=== PATIENT | female | born 1980 | race Caucasian/White ===

== ENCOUNTER 2017-06-05 15:26 | Emergency (ER) | payer BC ==
[2017-06-05 15:38] VITALS: BP 135/82; PULSE 63; RESP 18; TEMP 97.4; O2SAT 99
[2017-06-05 16:17] LABS: HCG,QUALITATIVE URINE NEGATIVE (NEGATIVE)
[2017-06-05 16:28] LABS: SQUAMOUS EPITHIAL 1 /hpf (0-5); URINE BACTERIA MOD (<OCC); URINE BILIRUBIN NEGATIVE (NEGATIVE); URINE BLOOD 2+ (NEGATIVE); URINE CLARITY Hazy (Clear); URINE COLOR Yellow (YELLOW); URINE GLUCOSE (UA) NORMAL (Normal); URINE LEUKOCYTE ESTERASE NEG Leu/uL (Negative); URINE NITRATE POSITIVE (NEGATIVE); URINE PROTEIN 2+ mg/dL (NEGATIVE); URINE UROBILINOGEN NORMAL mg/dL (0.2-1.0)
--- NOTE | 2017-06-05 17:00 | C.PDOC ---
History Of Present Illness 37 yr old female presents to the ER with complaints of burning with urination, associated with superpubic abdominal pain for the past 2-3 days. Patient also reports of foul smelling urine. Denies fever, nausea, vomiting, hematuria, back pain, weakness or numbness. Time Seen by Provider: 06/05/17 16:20 Chief Complaint (Nursing): Female Genitourinary History Per: Patient History/Exam Limitations: no limitations Onset/Duration Of Symptoms: Days (2-3 days) Past Medical History Reviewed: Historical Data, Nursing Documentation, Vital Signs Vital Signs: Last Vital Signs Temp 97.4 F L 06/05/17 15:36 Pulse 63 06/05/17 15:36 Resp 18 06/05/17 15:36 BP 135/82 06/05/17 15:36 Pulse Ox 99 06/05/17 17:17 - Medical History PMH: Anxiety, Hepatitis (C), Post Traumatic Stress Disorder, Schizophrenia Surgical History: Cholecystectomy - [facility] Procedures LAPAROSCOPIC CHOLECYSTECTOMY (10/04/14) Family History: States: No Known Family Hx - Social History Hx Tobacco Use: Yes Hx Alcohol Use: No Hx Substance Use: No (FORMER) - Immunization History Hx Tetanus Toxoid Vaccination: No Hx Influenza Vaccination: Yes (2016) Hx Pneumococcal Vaccination: No Review Of Systems Except As Marked, All Systems Reviewed And Found Negative. Constitutional: Negative for: Fever Gastrointestinal: Positive for: Abdominal Pain (Superpubic ). Negative for: Nausea, Vomiting Genitourinary: Positive for: Dysuria. Negative for: Hematuria Musculoskeletal: Negative for: Back Pain Neurological: Negative for: Weakness, Numbness Physical Exam - Physical Exam Appears: Non-toxic, No Acute Distress Skin: Warm, Dry Head: Atraumatic, Normacephalic Chest: Symmetrical, No Tenderness Cardiovascular: Rhythm Regular, No Murmur Respiratory: No Rales, No Rhonchi, No Stridor, No Wheezing Gastrointestinal/Abdominal: Normal Exam, Soft, No Tenderness, No Guarding, No Rebound Extremity: Normal ROM, No Swelling Neurological/Psych: Oriented x3, Normal Speech, Normal Motor ED Course And Treatment O2 Sat by Pulse Oximetry: 99 (RA ) Pulse Ox Interpretation: Normal Medical Decision Making Medical Decision Making: PLAN: * Urinalysi s * HCG * Ciprofloxacin PO * Pyriduym PO Disposition - Disposition Referrals: [facility] [Outside] Disposition: HOME/ ROUTINE Disposition Time: 16:57 Condition: GOOD Additional Instructions: Followup with the medical doctor within 1-2 days. Return if worsened. Prescriptions: Ciprofloxacin [Cipro] 1 tab PO BID #14 tab Phenazopyridine HCl [Pyridium] 200 mg PO TID #7 tablet Instructions: Urinary Tract Infection in Women (ED) Forms: [employer] Connect (Stateless) - Clinical Impression Clinical Impression: UTI (urinary tract infection) - PA / LEAD ENTERPRISE ARCHITECT / Resident Statement MD/DO has reviewed & agrees with the documentation as recorded. - Scribe Statement The provider has reviewed the documentation as recorded by the Scribe Chantelle Rosario All medical record entries made by the Joshua were at my direction and personally dictated by me. I have reviewed the chart and agree that the record accurately reflects my personal performance of the history, physical exam, medical decision making, and the department course for this patient. I have also personally directed, reviewed, and agree with the discharge instructions and disposition.
== END 2017-06-05 17:07 | disposition home or self-care (01) ==
LOC: C.ER 15:26
DX: N39.0 Urinary tract infection, site not specified (principal)

== ENCOUNTER 2017-08-19 19:52 | Emergency (ER) | payer BC ==
[2017-08-19 20:07] VITALS: TEMP 97.9
[2017-08-19] MEDS ORDERED: Sodium Chloride 0.9% 1,000 ML IV ONE (20:27)
[2017-08-19] MEDS ORDERED: Sodium Chloride 0.9% 1,000 ML ONE (20:45)
[2017-08-19 20:48] LABS: BASO # 0.1 K/uL (0.0-0.2); BASO % 0.6 % (0.0-2.0); EOS # 0.1 K/uL (0.0-0.7); EOS % 0.5 % (0.0-4.0); HEMATOCRIT 36.2 % (34.0-47.0); LYMPH # 4.2 K/uL (1.0-4.3); LYMPH % 42.7 % (20.0-40.0); MEAN CELL VOLUME 90.5 fL (81.0-99.0); MEAN CORPUSCULAR HGB CONC 34.2 g/dL (33.0-37.0); MEAN PLATELET VOLUME 8.9 fL (7.2-11.7); MONO # 0.5 K/uL (0.0-0.8); RED CELL DISTRIBUTION WIDTH 13.9 % (11.5-14.5); WHITE BLOOD COUNT 9.9 K/uL (4.8-10.8)
--- NOTE | 2017-08-19 20:48 | C.PDOC ---
History Of Present Illness 37 y/o female c/o lower back pain for a week. Patient saw her PMD recently who switch her from Motrin to Naproxen with no relief in pain. She denies any associated bladder symptoms and has no saddle anesthesia. She has no numbness or tingling in her legs. Patient notes this morning she began to vomit and have watery diarrhea associated with abdominal cramping. Denies fever or chills. No sick contact or recent travels. Patient is able to tolerate water, but has decrease PO intake. Time Seen by Provider: 08/19/17 20:21 Chief Complaint (Nursing): Abdominal Pain History Per: Patient History/Exam Limitations: no limitations Onset/Duration Of Symptoms: Days (1 week) Current Symptoms Are (Timing): Still Present Severity: Mild Quality Of Discomfort: Aching, Cramping Associated Symptoms: Vomiting, Diarrhea, Back Pain (lower). denies: Fever, Chills Alleviating Factors: None Recent travel outside of the [place]: No Additional History Per: Patient Past Medical History Reviewed: Historical Data, Nursing Documentation, Vital Signs Vital Signs: Last Vital Signs Temp 97.9 F 08/19/17 20:03 Pulse 92 H 08/19/17 20:03 Resp 20 08/19/17 20:03 BP 123/75 08/19/17 20:03 Pulse Ox 96 08/19/17 20:50 - Medical History PMH: Anxiety, Hepatitis (C), Post Traumatic Stress Disorder, Schizophrenia Denies: Chronic Kidney Disease Surgical History: Cholecystectomy - [facility] Procedures LAPAROSCOPIC CHOLECYSTECTOMY (10/04/14) Family History: States: Unknown Family Hx - Social History Hx Tobacco Use: Yes Hx Alcohol Use: No Hx Substance Use: No - Immunization History Hx Tetanus Toxoid Vaccination: No Hx Influenza Vaccination: Yes (2016) Hx Pneumococcal Vaccination: No Review Of Systems Except As Marked, All Systems Reviewed And Found Negative. Constitutional: Positive for: Other (Decrease PO intake). Negative for: Fever, Chills Gastrointestinal: Positive for: Vomiting, Abdominal Pain, Diarrhea Musculoskeletal: Positive for: Back Pain (lower) Physical Exam - Physical Exam Appears: Non-toxic, No Acute Distress Skin: Warm, Dry Head: Atraumatic, Normacephalic Cardiovascular: Rhythm Regular, No Murmur Respiratory: Normal Breath Sounds, No Rales, No Rhonchi, No Wheezing Gastrointestinal/Abdominal: Bowel Sounds (Normal), Soft, No Tenderness Back: No Vertebral Tenderness, Paraspinal Tenderness (Mild muscular tenderness to the lower back) Extremity: Normal ROM (x4) Neurological/Psych: Oriented x3, Normal Speech, Normal Motor, Normal Sensation, Other (No focal deficit) Gait: Steady ED Course And Treatment - Laboratory Results Result Diagrams: 08/19/17 20:43 08/19/17 20:43 Lab Interpretation: No Acute Changes O2 Sat by Pulse Oximetry: 96 (RA) Pulse Ox Interpretation: Normal Reevaluation Time: 21:37 Reassessment Condition: Improved (after treatment with Pepcid, Protonix, Flexeril and IV fluids.) Medical Decision Making Medical Decision Making: Plans: * Blood labs * Flexeril * Toradol * Zofran * IV fluids UA Disposition Counseled Patient/Family Regarding: Studies Performed, Diagnosis, Need For Followup, Rx Given - Disposition Referrals: [facility] [Outside] Disposition: HOME/ ROUTINE Disposition Time: 21:38 Condition: IMPROVED Prescriptions: Cyclobenzaprine [Cyclobenzaprine HCl] 10 mg PO BID PRN #20 tab PRN Reason: Pain, Moderate (4-7) Ondansetron ODT [Zofran ODT] 1 odt PO BID PRN #6 odt PRN Reason: Nausea/Vomiting Instructions: Gastroenteritis (ED), Back Pain (ED) Forms: [facility] (Bulgarian) - Clinical Impression Clinical Impression: Vomiting, Diarrhea, Back pain - Scribe Statement The provider has reviewed the documentation as recorded by the Scribvalente wilkinson All medical record entries made by the Heleneibvalente were at my direction and personally dictated by me. I have reviewed the chart and agree that the record accurately reflects my personal performance of the history, physical exam, medical decision making, and the department course for this patient. I have also personally directed, reviewed, and agree with the discharge instructions and disposition.
[2017-08-19 20:51] LABS: RBC URINE < 1 /hpf (0-3); URINE BILIRUBIN NEGATIVE (NEGATIVE); URINE BLOOD NEGATIVE (NEGATIVE); URINE COLOR Straw (YELLOW); URINE GLUCOSE (UA) NORMAL (Normal); URINE KETONE NEGATIVE (NEGATIVE); URINE LEUKOCYTE ESTERASE NEG Leu/uL (Negative); URINE PROTEIN NEGATIVE (NEGATIVE); URINE UROBILINOGEN NORMAL mg/dL (0.2-1.0); WBC URINE < 1 /hpf (0-5)
[2017-08-19 20:56] LABS: CHLORIDE 101 mmol/L (98-107); POTASSIUM 3.9 mmol/L (3.6-5.2); SODIUM 134 mmol/L (132-148)
[2017-08-19 20:58] LABS: BILIRUBIN,TOTAL 0.5 mg/dL (0.2-1.3); CARBON DIOXIDE 23 mmol/L (22-30); GFR AFRICAN-AMERICAN > 60
[2017-08-19 20:59] LABS: ALB/GLOB RATIO 1.1 (1.0-2.1); ALKALINE PHOSPHATASE 118 U/L (38-126); ALT/SGPT 63 U/L (9-52); AST/SGOT 38 U/L (14-36); BLOOD UREA NITROGEN 17 mg/dL (7-17); GLUCOSE,RANDOM 87 mg/dL (65-105); TOTAL PROTEIN 7.3 g/dL (6.3-8.3)
[2017-08-19 21:48] VITALS: BP 125/75; PULSE 78; RESP 16; O2SAT 98
== END 2017-08-19 21:47 | disposition home or self-care (01) ==
LOC: C.ER 19:52
DX: R11.10 Vomiting, unspecified (principal); R19.7 Diarrhea, unspecified; M54.5 Low back pain
CPT/HCPCS: 80053; 81001; 83690; 85025; 96361; 96374; 96375; 99283; J1885; J2405; J7040

== ENCOUNTER 2017-11-18 12:40 | Emergency (ER) | payer BC ==
[2017-11-18 12:56] VITALS: RESP 18; O2SAT 99
[2017-11-18 14:29] LABS: HCG,QUALITATIVE URINE NEGATIVE (NEGATIVE)
[2017-11-18 14:33] LABS: SQUAMOUS EPITHIAL 1 /hpf (0-5); URINE BACTERIA RARE (<OCC); URINE BILIRUBIN NEGATIVE (NEGATIVE); URINE BLOOD 3+ (NEGATIVE); URINE CLARITY Clear (Clear); URINE COLOR Yellow (YELLOW); URINE GLUCOSE (UA) NORMAL (Normal); URINE HYALINE CAST 0-2 /lpf (0-2); URINE LEUKOCYTE ESTERASE NEG Leu/uL (Negative); URINE NITRATE NEGATIVE (NEGATIVE); URINE PROTEIN 1+ mg/dL (NEGATIVE); URINE UROBILINOGEN NORMAL mg/dL (0.2-1.0)
--- NOTE | 2017-11-18 14:46 | C.PDOC ---
History Of Present Illness Pt c/o menstrual cramps. Time Seen by Provider: 11/18/17 13:03 Chief Complaint (Nursing): Abdominal Pain History Per: Patient Onset/Duration Of Symptoms: Days (5), Intermittent Episodes Current Symptoms Are (Timing): Still Present Severity: Moderate Location Of Pain/Discomfort: Suprapubic Quality Of Discomfort: Cramping Additional History Per: Prior Records Past Medical History Reviewed: Historical Data, Nursing Documentation, Vital Signs Vital Signs: Last Vital Signs Temp 97.6 F 11/18/17 12:52 Pulse 108 H 11/18/17 12:52 Resp 18 11/18/17 12:52 BP 112/77 11/18/17 12:52 Pulse Ox 99 11/18/17 14:55 - Medical History PMH: Anxiety, Hepatitis (C), Post Traumatic Stress Disorder, Schizophrenia Surgical History: Cholecystectomy - [facility] Procedures LAPAROSCOPIC CHOLECYSTECTOMY (10/04/14) Family History: States: Unknown Family Hx - Social History Hx Tobacco Use: Yes Hx Alcohol Use: No Hx Substance Use: No - Immunization History Hx Tetanus Toxoid Vaccination: No Hx Influenza Vaccination: Yes (2015) Hx Pneumococcal Vaccination: No Review Of Systems Except As Marked, All Systems Reviewed And Found Negative. Constitutional: Negative for: Fever, Weakness Cardiovascular: Negative for: Chest Pain, Light Headedness Respiratory: Negative for: Shortness of Breath Genitourinary: Positive for: Vaginal Bleeding. Negative for: Dysuria Musculoskeletal: Negative for: Neck Pain Skin: Negative for: Rash Neurological: Negative for: Weakness, Numbness Physical Exam - Physical Exam Appears: Non-toxic, No Acute Distress Skin: Normal Color, Warm, Dry, No Rash Head: Atraumatic, Normacephalic Eye(s): bilateral: Normal Inspection, PERRL, EOMI Neck: Normal ROM, Supple Cardiovascular: Rhythm Regular Respiratory: Normal Breath Sounds, No Accessory Muscle Use Gastrointestinal/Abdominal: Soft, Tenderness (mild suprapubic), No Guarding, No Rebound Back: No CVA Tenderness Extremity: Normal ROM Neurological/Psych: Oriented x3, Normal Motor, Normal Sensation ED Course And Treatment - Laboratory Results Urine POC: Negative O2 Sat by Pulse Oximetry: 99 Pulse Ox Interpretation: Normal Disposition Counseled Patient/Family Regarding: Studies Performed, Diagnosis, Need For Followup, Rx Given - Disposition Referrals: Jose Pereira MD [Staff Provider] - Disposition: HOME/ ROUTINE Disposition Time: 14:56 Condition: STABLE Additional Instructions: Follow up with your Electronics Warfare Technician for further evaluation and treatment. Return to the ER if you develop fever, vomiting, dizziness, worsening of symptoms or if you have any other concerns. Prescriptions: Cyclobenzaprine [Cyclobenzaprine HCl] 10 mg PO TID PRN #15 tab PRN Reason: Muscle Spasm Naproxen [Naprosyn] 1 tab PO BID PRN #20 tab PRN Reason: Pain Instructions: Dysmenorrhea (ED) Forms: [facility] (Palauan) - Clinical Impression Clinical Impression: Dysmenorrhea
[2017-11-18 15:10] VITALS: BP 116/76; PULSE 97; TEMP 97.5
== END 2017-11-18 15:10 | disposition home or self-care (01) ==
LOC: C.ER 12:40
DX: N94.6 Dysmenorrhea, unspecified (principal)

== ENCOUNTER 2018-01-19 17:11 | Emergency (ER) | payer BC ==
[2018-01-19 17:32] VITALS: BP 131/93; PULSE 85; RESP 18; TEMP 98; O2SAT 93
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
--- NOTE | 2018-01-20 23:32 | CARD ---
APPROVED REPORT EKG Measurement Heart [id number] <Conclusion> Normal sinus rhythm Normal ECG
== END 2018-01-19 18:12 | disposition left against medical advice (07) ==
LOC: C.ER 17:11
DX: Z76.5 Malingerer [conscious simulation] (principal); R46.1 Bizarre personal appearance

== ENCOUNTER 2018-06-06 15:09 | Emergency (ER) | payer BC ==
[2018-06-06] MEDS ORDERED: Sodium Chloride 0.9% 1,000 ML IV ONE (15:28)
--- NOTE | 2018-06-06 16:00 | C.PDOC ---
History Of Present Illness 38 year old female presents to the emergency department after her called an ambulance when she overdosed on heroin. As per EMS, Narcan was used to revive her. Patient reports that she snorts heroin, but administered it via IV today. She reports using heroin for the last ten years. She denies other medical problems, or suicidal ideation. Time Seen by Provider: 06/06/18 15:22 Chief Complaint (Nursing): Substance Abuse History Per: Patient, EMS, Family History/Exam Limitations: no limitations Onset/Duration Of Symptoms: Hrs Current Symptoms Are (Timing): Still Present Suicide/Self Injury Attempted (Context): None Modifying Factor(s): Other (heroin) Associated Symptoms: denies: Suicidal Thoughts, Suicidal Plan Past Medical History Reviewed: Historical Data, Nursing Documentation, Vital Signs Vital Signs: Last Vital Signs Temp 98.5 F 06/06/18 18:04 Pulse 87 06/06/18 19:27 Resp 14 06/06/18 19:27 BP 113/69 06/06/18 19:27 Pulse Ox 96 06/06/18 19:27 - Medical History PMH: Anxiety, Bipolar Disorder, Hepatitis (C), Post Traumatic Stress Disorder, Schizophrenia Denies: Chronic Kidney Disease Surgical History: Cholecystectomy - [facility] Procedures LAPAROSCOPIC CHOLECYSTECTOMY (10/04/14) Family History: States: No Known Family Hx - Social History Hx Tobacco Use: Yes Hx Alcohol Use: No Hx Substance Use: No - Immunization History Hx Tetanus Toxoid Vaccination: No Hx Influenza Vaccination: Yes (sep 2017) Hx Pneumococcal Vaccination: No Review Of Systems Psych: Negative for: Suicidal ideation Physical Exam - Physical Exam Appears: Non-toxic, No Acute Distress, Other (obese) Skin: Warm, Dry Head: Atraumatic, Normacephalic Eye(s): bilateral: Normal Inspection Nose: Normal Oral Mucosa: Moist Neck: Normal, Supple Chest: Symmetrical, No Tenderness Cardiovascular: Rhythm Regular (tachycardic), No Murmur Respiratory: Normal Breath Sounds, No Rales, No Rhonchi, No Wheezing Gastrointestinal/Abdominal: Normal Exam, Soft, No Tenderness, No Guarding, No Rebound Extremity: Normal ROM, Other (IO present in left lower leg) Neurological/Psych: Oriented x3, Normal Speech, Normal Cognition ED Course And Treatment - Laboratory Results Result Diagrams: 06/06/18 16:22 08/05/18 16:22 Lab Interpretation: No Acute Changes ECG: Interpreted By Me ECG Rhythm: Sinus Rhythm ECG Interpretation: No Acute Changes Progress Note: Plan: EKG. Alcohol Serum. CMP. Drug Screen. CBC. NaCl IV Fluids. HCG Qualitative Urine. Urinalysis Reevaluation Time: 20:34 Reassessment Condition: Improved (Patient remians awake and alert and in no distress.) Disposition Counseled Patient/Family Regarding: Studies Performed, Diagnosis, Need For Followup - Disposition Referrals: [facility] [Outside] Disposition: HOME/ ROUTINE Disposition Time: 20:37 Condition: IMPROVED Instructions: Narcotic Overdose Forms: [employer] (Cape Verdean) - Clinical Impression Clinical Impression: Opiate overdose - Scribe Statement The provider has reviewed the documentation as recorded by the Scribe (Ren Brown) Provider Attestation: All medical record entries made by the Scribe were at my direction and personally dictated by me. I have reviewed the chart and agree that the record accurately reflects my personal performance of the history, physical exam, medical decision making, and the department course for this patient. I have also personally directed, reviewed, and agree with the discharge instructions and disposition.
[2018-06-06 16:24] LABS: BASO % 0.1 % (0.0-2.0); HEMOGLOBIN 12.2 g/dL (11.0-16.0); LYMPH # 0.7 K/uL (1.0-4.3); LYMPH % 4.7 % (20.0-40.0); MEAN CORPUSCULAR HEMOGLOBIN 29.1 pg (27.0-31.0); MEAN CORPUSCULAR HGB CONC 32.8 g/dL (33.0-37.0); MEAN PLATELET VOLUME 8.6 fL (7.2-11.7); MONO # 0.7 K/uL (0.0-0.8); MONO % 4.7 % (0.0-10.0); NEUT # 14.1 K/uL (1.8-7.0); NEUT % 90.5 % (50.0-75.0); NRBC % 0.1 % (0.0-2.0); PLATELET COUNT 223 K/uL (130-400); RBC 4.21 Mil/uL (3.80-5.20); RED CELL DISTRIBUTION WIDTH 14.3 % (11.5-14.5); WHITE BLOOD COUNT 15.6 K/uL (4.8-10.8)
[2018-06-06 16:28] LABS: MEAN CELL VOLUME 88.5 fL (81.0-99.0)
[2018-06-06 16:37] LABS: ALB/GLOB RATIO 1.3 (1.0-2.1); ALBUMIN 4.2 g/dL (3.5-5.0); ALT/SGPT 30 U/L (9-52); AST/SGOT 27 U/L (14-36); BLOOD UREA NITROGEN 17 mg/dL (7-17); CALCIUM 8.9 mg/dl (8.6-10.4); GFR AFRICAN-AMERICAN 44; GFR NON-AFRICAN AMERICAN 36
[2018-06-06 16:57] LABS: BANDS 8 % (0-2); LYMPHOCYTE 6 % (20-40); MONOCYTE 4 % (0-10); NEUTROPHIL 82 % (50-75); PLATELET ESTIMATE NORMAL (NORMAL); TOTAL CELLS COUNTED 100
[2018-06-06 16:58] LABS: ANISOCYTOSIS SLIGHT; HYPOCHROMIC SLIGHT; LARGE PLATELETS PRESENT; OVALOCYTES SLIGHT; POIKILOCYTOSIS SLIGHT
[2018-06-06 21:01] LABS: HCG,QUALITATIVE URINE NEGATIVE (NEGATIVE)
[2018-06-06 21:09] LABS: SQUAMOUS EPITHIAL 2 /hpf (0-5); URINE BILIRUBIN NEGATIVE (NEGATIVE); URINE BLOOD 2+ (NEGATIVE); URINE CLARITY Hazy (Clear); URINE COLOR Yellow (YELLOW); URINE GLUCOSE (UA) NORMAL (Normal); URINE LEUKOCYTE ESTERASE NEG Leu/uL (Negative); URINE PROTEIN NEGATIVE (NEGATIVE); URINE UROBILINOGEN NORMAL mg/dL (0.2-1.0)
[2018-06-06 21:10] VITALS: BP 109/72; PULSE 88; RESP 18; TEMP 98.2; O2SAT 94
[2018-06-06 21:25] LABS: BARBITURATES, UR NEGATIVE (NEGATIVE); BENZODIAZEPINES, UR NEGATIVE (NEGATIVE); PHENCYCLIDINE, UR NEGATIVE (NEGATIVE)
[2018-06-06 21:45] LABS: OPIATES, UR POSITIVE (NEGATIVE)
--- NOTE | 2018-06-07 23:59 | CARD ---
APPROVED REPORT Date of service: 06/06/2018 EKG Measurement Heart [id number] <Conclusion> Normal sinus rhythm Possible Left atrial enlargement Borderline ECG
== END 2018-06-06 21:05 | disposition home or self-care (01) ==
LOC: C.ER 15:09
DX: T40.1X1A Poisoning by heroin, accidental (unintentional), initial encounter (principal); Y92.89 Other specified places as the place of occurrence of the external cause; F31.9 Bipolar disorder, unspecified; F43.10 Post-traumatic stress disorder, unspecified; F20.9 Schizophrenia, unspecified
CPT/HCPCS: 80053; 81001; 84703; 85025; 93005; 96360; 99285; G0480; J7030

== ENCOUNTER 2018-07-07 19:10 | Emergency (ER) | payer BC ==
[2018-07-07] MEDS ORDERED: Sodium Chloride 0.9% 1,000 ML IV ONE (20:09)
--- NOTE | 2018-07-07 20:33 | C.PDOC ---
History Of Present Illness 38 y/o female presents to the ER complaining of vomiting x 3 days and diarrhea which began in the morning today. Patient states that she has aching muscles, and feels warm. Patient denies having fever and abdominal pain. Time Seen by Provider: 07/07/18 20:05 Chief Complaint (Nursing): Abdominal Pain History Per: Patient History/Exam Limitations: no limitations Onset/Duration Of Symptoms: Days Current Symptoms Are (Timing): Still Present Severity: Moderate Past Medical History Reviewed: Historical Data, Nursing Documentation, Vital Signs Vital Signs: Last Vital Signs Temp 98.2 F 07/07/18 19:48 Pulse 79 07/07/18 19:48 Resp 22 07/07/18 19:48 BP 145/82 07/07/18 19:48 Pulse Ox 95 07/07/18 20:35 - Medical History PMH: Anxiety, Bipolar Disorder, Hepatitis (C), Post Traumatic Stress Disorder, Schizophrenia Surgical History: Cholecystectomy - [facility] Procedures LAPAROSCOPIC CHOLECYSTECTOMY (10/04/14) Family History: States: No Known Family Hx - Social History Hx Tobacco Use: Yes Hx Alcohol Use: No Hx Substance Use: No - Immunization History Hx Tetanus Toxoid Vaccination: No Hx Influenza Vaccination: Yes (sep 2017) Hx Pneumococcal Vaccination: No Review Of Systems Except As Marked, All Systems Reviewed And Found Negative. Constitutional: Negative for: Fever, Chills Gastrointestinal: Positive for: Vomiting, Diarrhea. Negative for: Nausea, Abdominal Pain Genitourinary: Negative for: Dysuria, Hematuria Physical Exam - Physical Exam Appears: Non-toxic, No Acute Distress Skin: Normal Color, Warm, Dry Head: Atraumatic, Normacephalic Eye(s): bilateral: Normal Inspection, EOMI Nose: Normal Oral Mucosa: Moist Throat: Normal, No Erythema, No Exudate Neck: Supple Chest: Symmetrical Cardiovascular: Rhythm Regular Respiratory: Normal Breath Sounds, No Rales, No Rhonchi, No Wheezing Gastrointestinal/Abdominal: Bowel Sounds, Soft, No Tenderness, No Distention, No Guarding Extremity: Bilateral: Atraumatic, Normal ROM Neurological/Psych: Oriented x3, Normal Speech ED Course And Treatment - Laboratory Results Result Diagrams: 07/07/18 20:30 07/07/18 20:30 Lab Interpretation: No Acute Changes O2 Sat by Pulse Oximetry: 95 (RA) Pulse Ox Interpretation: Normal Medical Decision Making Medical Decision Making: Impression: Vomiting, Diarrhea Plan: * Labs * UA * Pepcid IV * Toradol IV * Zofran IV * IV Fluids Labs reviewed and unremarkable. Urine negative for UTI. On re-eval, the patient is resting comfortably without fever and stable vital signs, abdomen remains soft. Patient is tolerating PO. Patient feels comfortable going home. Patient will be discharged home. Disposition Counseled Patient/Family Regarding: Diagnosis, Need For Followup - Disposition Referrals: [facility] [Outside] [facility] [Outside] Disposition: HOME/ ROUTINE Disposition Time: 21:26 Condition: STABLE Additional Instructions: Drink fluids to prevent dehydration. Try low-fat diet with increase in fluids such as sport drink, gelatin. Try soup, rice, bread, crackers, cereal, bananas to help with diarrhea. Avoid high sugar foods or drinks (soda and juice) , fatty foods Instructions: Gastroenteritis (DC) - POA Present On Arrival: None - Clinical Impression Clinical Impression: Gastroenteritis - PA / PRESALES CONSULTANT / Resident Statement MD/DO has reviewed & agrees with the documentation as recorded. - Scribe Statement The provider has reviewed the documentation as recorded by the Heleneibe Ford El Provider Attestation All medical record entries made by the Heleneibe were at my direction and personally dictated by me. I have reviewed the chart and agree that the record accurately reflects my personal performance of the history, physical exam, medical decision making, and the department course for this patient. I have also personally directed, reviewed, and agree with the discharge instructions and disposition.
[2018-07-07] MEDS ORDERED: Sodium Chloride 0.9% 1,000 ML ONE (20:40)
[2018-07-07 20:45] LABS: BASO % 0.3 % (0.0-2.0); EOS % 0.2 % (0.0-4.0); HEMOGLOBIN 13.2 g/dL (11.0-16.0); LYMPH # 2.6 K/uL (1.0-4.3); MEAN CELL VOLUME 86.8 fL (81.0-99.0); MEAN CORPUSCULAR HEMOGLOBIN 29.4 pg (27.0-31.0); MEAN CORPUSCULAR HGB CONC 33.9 g/dL (33.0-37.0); MEAN PLATELET VOLUME 10.4 fL (7.2-11.7); MONO # 0.4 K/uL (0.0-0.8); NEUT # 7.4 K/uL (1.8-7.0); NEUT % 70.5 % (50.0-75.0); RBC 4.49 Mil/uL (3.80-5.20); RED CELL DISTRIBUTION WIDTH 14.2 % (11.5-14.5); WHITE BLOOD COUNT 10.5 K/uL (4.8-10.8)
[2018-07-07 20:50] LABS: SQUAMOUS EPITHIAL 5 /hpf (0-5); URINE BACTERIA RARE (<OCC); URINE BILIRUBIN NEGATIVE (NEGATIVE); URINE BLOOD NEGATIVE (NEGATIVE); URINE CLARITY Hazy (Clear); URINE GLUCOSE (UA) NORMAL (Normal); URINE LEUKOCYTE ESTERASE TRACE Leu/uL (Negative); URINE PROTEIN 1+ mg/dL (NEGATIVE)
[2018-07-07 20:53] LABS: URINE COLOR YELLOW (YELLOW)
[2018-07-07 21:19] LABS: ALB/GLOB RATIO 1.2 (1.0-2.1); ALBUMIN 4.2 g/dL (3.5-5.0); ALT/SGPT 20 U/L (9-52); AST/SGOT 24 U/L (14-36); BLOOD UREA NITROGEN 9 mg/dL (7-17); CALCIUM 9.4 mg/dl (8.6-10.4); GFR NON-AFRICAN AMERICAN > 60
[2018-07-07 21:50] VITALS: BP 118/78; PULSE 64; RESP 18; TEMP 98.9
[2018-07-07 21:57] VITALS: O2SAT 95
== END 2018-07-07 21:50 | disposition home or self-care (01) ==
LOC: C.ER 19:10
DX: K52.9 Noninfective gastroenteritis and colitis, unspecified (principal)
CPT/HCPCS: 80053; 81001; 84703; 85025; 96361; 96374; 96375; 99284; J1885; J2405; J7030

== ENCOUNTER 2018-11-01 16:46 | Emergency (ER) | payer BC ==
[2018-11-01 17:00] VITALS: O2SAT 95
[2018-11-01 18:19] LABS: BASO % 0.5 % (0.0-2.0); EOS # 0.2 K/uL (0.0-0.7); EOS % 2.5 % (0.0-4.0); HEMOGLOBIN 11.5 g/dL (11.0-16.0); LYMPH # 2.6 K/uL (1.0-4.3); LYMPH % 28.2 % (20.0-40.0); MEAN CELL VOLUME 87.3 fL (81.0-99.0); MEAN CORPUSCULAR HEMOGLOBIN 28.3 pg (27.0-31.0); MEAN CORPUSCULAR HGB CONC 32.4 g/dL (33.0-37.0); MEAN PLATELET VOLUME 10.4 fL (7.2-11.7); MONO # 0.4 K/uL (0.0-0.8); MONO % 4.1 % (0.0-10.0); NEUT # 5.9 K/uL (1.8-7.0); NEUT % 64.7 % (50.0-75.0); RBC 4.07 Mil/uL (3.80-5.20); RED CELL DISTRIBUTION WIDTH 14.7 % (11.5-14.5); WHITE BLOOD COUNT 9.2 K/uL (4.8-10.8)
[2018-11-01] MEDS ORDERED: Iodixanol 320 MG/ML 100 ML BOTTLE IV ONE (18:32)
[2018-11-01 18:35] LABS: ALB/GLOB RATIO 1.3 (1.0-2.1); ALBUMIN 4.2 g/dL (3.5-5.0); ALT/SGPT 33 U/L (9-52); AST/SGOT 31 U/L (14-36); BLOOD UREA NITROGEN 13 mg/dL (7-17); CALCIUM 8.3 mg/dl (8.6-10.4); GFR NON-AFRICAN AMERICAN > 60
--- NOTE | 2018-11-01 19:21 | C.PDOC ---
History Of Present Illness 38 y/o female presents to the ER complaining of pimple on right cheek which has been present for the past several days. Patient states that she picked at the pimple several days ago. Patient reports that she now has swelling and redness to the cheek extending to lower portion of right eyelid. She notes that her left eye was swollen and closed when she woke up in the morning today.Denies having fever and chills. Time Seen by Provider: 11/01/18 17:47 Chief Complaint (Nursing): Abnormal Skin Integrity History Per: Patient History/Exam Limitations: no limitations Onset/Duration Of Symptoms: Days Current Symptoms Are (Timing): Still Present Severity: Moderate Past Medical History Reviewed: Historical Data, Nursing Documentation, Vital Signs Vital Signs: Last Vital Signs Temp 98.7 F 11/01/18 16:55 Pulse 64 11/01/18 16:55 Resp 18 11/01/18 16:55 BP 154/94 H 11/01/18 16:55 Pulse Ox 95 11/01/18 16:55 - Medical History PMH: Anxiety, Bipolar Disorder, Hepatitis (C), Post Traumatic Stress Disorder, Schizophrenia Denies: Chronic Kidney Disease Surgical History: Cholecystectomy - [facility] Procedures LAPAROSCOPIC CHOLECYSTECTOMY (10/04/14) Family History: States: No Known Family Hx - Social History Hx Tobacco Use: Yes Hx Alcohol Use: No Hx Substance Use: No - Immunization History Hx Tetanus Toxoid Vaccination: No Hx Influenza Vaccination: Yes (sep 2017) Hx Pneumococcal Vaccination: No Review Of Systems Constitutional: Negative for: Fever, Chills Skin: Positive for: Other (pimple to right cheek) Physical Exam - Physical Exam Appears: Non-toxic, No Acute Distress Skin: Normal Color, Warm, Dry Head: Normacephalic, Swelling (firm erythematous swollen indurated right zygomatic arch), Other (pustule with small scab over it to right zygomatic arch, no fluctuance) Eye(s): bilateral: Normal Inspection, PERRL, EOMI Nose: Normal Oral Mucosa: Moist Neck: Supple Chest: Symmetrical Cardiovascular: Rhythm Regular Respiratory: Normal Breath Sounds, No Rales, No Rhonchi, No Wheezing Neurological/Psych: Oriented x3, Normal Speech ED Course And Treatment - Laboratory Results Result Diagrams: 11/01/18 18:14 11/01/18 18:14 Lab Interpretation: No Acute Changes O2 Sat by Pulse Oximetry: 95 (RA) Pulse Ox Interpretation: Normal - CT Scan/US CT facial bones Other Rad Studies (CT/US): Read By Radiologist, Radiology Report Reviewed CT/US Interpretation: Findings: The visualized paranasal sinuses demonstrate diffuse mucosal thickening. Air fluid levels are seen in the maxillary sinuses bilaterally. The osteomeatal complexes are patent bilaterally. The nasal septum is midline. The visualized mastoid air cells are clear. The osseous structures do not demonstrate any acute abnormalities. The superficial soft tissues in the right maxillary region demonstrate significant inflammatory stranding and swelling. No focal mass or fluid collection is identified however. Impression: 1. Inflammation and swelling in the right maxillary superficial soft tissues are consistent with cellulitis. No focal mass or abscess is identified. 2. Pansinusitis. Reevaluation Time: 21:23 Reassessment Condition: Unchanged Medical Decision Making Medical Decision Making: Plan: --Labs --CT- Orbits w/Facial Disposition Counseled Patient/Family Regarding: Studies Performed, Diagnosis, Need For Followup, Rx Given - Disposition Referrals: Scott Pereira MD [Staff Provider] - Disposition: HOME/ ROUTINE Disposition Time: 21:23 Condition: STABLE Prescriptions: Doxycycline Monohydrate 100 mg PO BID #20 capsule Naproxen [Naprosyn] 1 tab PO BID PRN #25 tab PRN Reason: Pain Instructions: Cellulitis (Skin Infection), Adult (DC) Forms: [facility] (Gabonese) - Clinical Impression Clinical Impression: Facial cellulitis - Scribe Statement The provider has reviewed the documentation as recorded by the Joshua El Provider Attestation: All medical record entries made by the Joshua were at my direction and personally dictated by me. I have reviewed the chart and agree that the record accurately reflects my personal performance of the history, physical exam, medical decision making, and the department course for this patient. I have also personally directed, reviewed, and agree with the discharge instructions and disposition.
[2018-11-01 21:19] VITALS: BP 127/78; PULSE 56; RESP 13; TEMP 98.3
[2018-11-01] MEDS ORDERED: Naproxen 550 mg Tab PO STA (21:33)
[2018-11-01] MEDS ORDERED: Naproxen 550 mg Tab PO ONE (21:40)
--- NOTE | 2018-11-02 13:42 | CT ---
Date of service: 11/01/2018 CT orbits without IV contrast Indication: right facial abscess Comparison: None available Technique: Axial computed tomography images were obtained of the orbits without the use of intravenous contrast. Coronal and sagittal reformatted images were generated and reviewed. This CT exam was performed using 1 or more of the following dose reduction techniques: Automated exposure control, adjustment of the MAA and/or kV according to patient size, and/or use of iterative reconstruction technique. Radiation dose: Total exam DLP = 778.72 mGy-cm. Findings: Phlegmonous change and marked inflammatory stranding/soft tissue swelling involving the right maxillary region soft tissues. Mucosal thickening of the bilateral maxillary sinuses, bilateral sphenoid sinuses, and bilateral frontal sinuses. Marked mucosal thickening and opacification of the ethmoid air cells. The facial bones appear unremarkable and without acute displaced fracture. The orbits appear unremarkable. The temporomandibular joints appear located. The mastoid air cells appear clear. Adenopathy measuring up to approximately 11 mm in short axis, in particular jugular digastric, submandibular, and periparotid lymph nodes on the right, likely related to infectious/inflammatory process. The visualized brain appears unremarkable. Impression: Phlegmonous change and marked inflammatory stranding/soft tissue swelling involving the right maxillary region soft tissues. Right greater than left adenopathy, in particular right-sided jugular digastric, submandibular, and periparotid lymph nodes, likely related to infectious/inflammatory process. Pansinusitis. Preliminary impression was provided by [employer].
== END 2018-11-01 21:41 | disposition home or self-care (01) ==
LOC: C.ER 16:46
DX: L03.211 Cellulitis of face (principal); F20.9 Schizophrenia, unspecified; Z72.0 Tobacco use
CPT/HCPCS: 70481; 80053; 84703; 85025; 99285; Q9967

== ENCOUNTER 2018-11-11 21:37 | Emergency (ER) | payer BC ==
--- NOTE | 2018-11-11 22:48 | C.PDOC ---
History Of Present Illness 38 year old female with a Hx of bipolar disorder, PTSD, and depression presents to the ER with a complaint of heavy vaginal bleeding for the past 3 months. Patient states when it started she had bleeding for a couple of weeks that re solved for a week then returned again. She has been passing blood and clots, using 5 pads a day, over the last few days she has been feeling lightheaded and SOB. Patient has Hx of transfusion due to severe vaginal bleeding when she was 14. She regularly get heavy periods but never this frequent. Patient also reports crampy abdominal pain which she has been taking OTC ibuprofen for. Patient scheduled an appointment with her OB Dr. Kat Segal but it is not until next week. PMHx: Bipolar disorder, depression, PTSD, anemia, cholecystectomy Social Hx: Smokes, recovering opiate user, no ETOH use Family Hx: HTN Time Seen by Provider: 11/11/18 22:03 Chief Complaint (Nursing): Female Genitourinary History Per: Patient History/Exam Limitations: no limitations Onset/Duration Of Symptoms: Days Current Symptoms Are (Timing): Still Present Quality Of Discomfort: Cramping Associated Symptoms: Other (Lightheaded, SOB) Recent travel outside of the [place]: No Abnormal Vaginal Bleeding: Yes Past Medical History Reviewed: Historical Data, Nursing Documentation, Vital Signs Vital Signs: Last Vital Signs Temp Pulse 106 H 11/11/18 22:00 Resp 20 11/11/18 22:00 BP 104/83 11/11/18 22:00 Pulse Ox 94 L 11/11/18 22:00 - Medical History PMH: Anxiety, Bipolar Disorder, Hepatitis (C), Post Traumatic Stress Disorder, Schizophrenia Denies: Chronic Kidney Disease Surgical History: Cholecystectomy - [facility] Procedures LAPAROSCOPIC CHOLECYSTECTOMY (10/04/14) Family History: States: Hypertension - Social History Hx Tobacco Use: Yes Hx Alcohol Use: No Hx Substance Use: No - Immunization History Hx Tetanus Toxoid Vaccination: No Hx Influenza Vaccination: Yes (sep 2017) Hx Pneumococcal Vaccination: No Review Of Systems Except As Marked, All Systems Reviewed And Found Negative. Cardiovascular: Positive for: Light Headedness Respiratory: Positive for: Shortness of Breath Gastrointestinal: Positive for: Abdominal Pain Genitourinary: Positive for: Vaginal Bleeding Physical Exam - Physical Exam Appears: No Acute Distress Skin: Warm, Dry Head: Atraumatic, Normacephalic Eye(s): bilateral: PERRL, EOMI Oral Mucosa: Moist Lips: Normal Appearing Throat: No Erythema, No Exudate Neck: Normal ROM, Trachea Midline Lymphatic: No Adenopathy Chest: Symmetrical, No Tenderness Cardiovascular: Rhythm Regular, No Murmur Respiratory: No Accessory Muscle Use, Rhonchi (Diffuse), Wheezing (Scattered), No Other (Respiratory distress) Gastrointestinal/Abdominal: Soft, Tenderness (Mild suprapubic to palpation), No Mass, No Distention, No Guarding, No Rebound Back: Normal Inspection, No CVA Tenderness Extremity: Normal ROM, No Deformity Neurological/Psych: Oriented x3, Normal Motor, Normal Sensation ED Course And Treatment - Laboratory Results Result Diagrams: 11/11/18 23:35 11/11/18 22:45 O2 Sat by Pulse Oximetry: 94 Medical Decision Making Medical Decision Making: Differential includes but not limited to: Abnormal vaginal bleeding, Anemia, fibroids, dysfunctional uterine bleeding, coagulopathy 1150P Labs unremarkable DW pt findings and plan of care. Keep appt with Dr Segal, Ibuprofen 800 for pain, bleeding precautions. Disposition Counseled Patient/Family Regarding: Studies Performed, Diagnosis, Need For Followup - Disposition Referrals: Kat Segal [Staff Provider] - Disposition: HOSPITALIZED Disposition Time: 23:45 Condition: STABLE Additional Instructions: DRINK PLENTY OF HYDRATING FLUIDS AND AVOID STRENUOUS ACTIVITY TAKE A MULTIVITAMIN DAILY Prescriptions: Ibuprofen [Motrin Tab] 800 mg PO Q8 PRN #30 tab PRN Reason: Pain, Moderate (4-7) Instructions: Heavy Periods (DC) - Clinical Impression Clinical Impression: Vaginal bleeding, abnormal - Scribe Statement The provider has reviewed the documentation as recorded by the Scribvalente Valdes All medical record entries made by the Heleneibvalente were at my direction and personally dictated by me. I have reviewed the chart and agree that the record accurately reflects my personal performance of the history, physical exam, medical decision making, and the department course for this patient. I have also personally directed, reviewed, and agree with the discharge instructions and disposition.
[2018-11-11 23:02] LABS: INR 1.3; PROTHROMBIN TIME 13.8 SECONDS (9.7-12.2)
[2018-11-11 23:05] LABS: SQUAMOUS EPITHIAL 2 /hpf (0-5); URINE BILIRUBIN NEGATIVE (NEGATIVE); URINE BLOOD 1+ (NEGATIVE); URINE CLARITY Clear (Clear); URINE COLOR Yellow (YELLOW); URINE GLUCOSE (UA) NORMAL (Normal); URINE HYALINE CAST 0-2 /lpf (0-2); URINE LEUKOCYTE ESTERASE NEG Leu/uL (Negative); URINE PROTEIN 1+ mg/dL (NEGATIVE)
[2018-11-11 23:18] LABS: ALB/GLOB RATIO 1.1 (1.0-2.1); ALBUMIN 4.2 g/dL (3.5-5.0); ALT/SGPT 22 U/L (9-52); AST/SGOT 27 U/L (14-36); BLOOD UREA NITROGEN 14 mg/dL (7-17); CALCIUM 8.8 mg/dl (8.6-10.4); GFR NON-AFRICAN AMERICAN > 60
[2018-11-11 23:20] LABS: BARBITURATES, UR NEGATIVE (NEGATIVE); PHENCYCLIDINE, UR NEGATIVE (NEGATIVE)
[2018-11-11 23:26] LABS: BENZODIAZEPINES, UR POSITIVE (NEGATIVE); OPIATES, UR POSITIVE (NEGATIVE)
[2018-11-11 23:38] LABS: BASO # 0.1 K/uL (0.0-0.2); BASO % 0.6 % (0.0-2.0); EOS # 0.2 K/uL (0.0-0.7); EOS % 2.7 % (0.0-4.0); HEMOGLOBIN 12.1 g/dL (11.0-16.0); LYMPH # 2.4 K/uL (1.0-4.3); LYMPH % 27.8 % (20.0-40.0); MEAN CELL VOLUME 85.8 fL (81.0-99.0); MEAN CORPUSCULAR HEMOGLOBIN 28.1 pg (27.0-31.0); MEAN CORPUSCULAR HGB CONC 32.8 g/dL (33.0-37.0); MEAN PLATELET VOLUME 9.5 fL (7.2-11.7); MONO # 0.3 K/uL (0.0-0.8); MONO % 3.8 % (0.0-10.0); NEUT # 5.6 K/uL (1.8-7.0); NEUT % 65.1 % (50.0-75.0); RBC 4.29 Mil/uL (3.80-5.20); RED CELL DISTRIBUTION WIDTH 14.9 % (11.5-14.5); WHITE BLOOD COUNT 8.6 K/uL (4.8-10.8)
[2018-11-12 00:14] VITALS: BP 118/75; PULSE 80; RESP 14; O2SAT 99
== END 2018-11-12 00:14 | disposition home or self-care (01) ==
LOC: C.ER 21:37
DX: N93.9 Abnormal uterine and vaginal bleeding, unspecified (principal)
CPT/HCPCS: 80053; 81001; 84703; 85025; 85610; 85730; 86850; 86900; 87086; 99284; G0480